=== PATIENT | female | born 1975 | race Caucasian/White ===

== ENCOUNTER 2017-04-28 12:33 | Emergency (ER) | payer OTHER ==
[2017-04-28 14:13] LABS: ABS Basophils 0.1 10^3/ul (0-0.2); ABS Eosinophils 0.1 10^3/ul (0-0.6); ABS Lymphocytes 1.4 10^3/ul (1.0-4.8); ABS Monocytes 0.2 10^3/ul (0-0.8); ABS Neutrophils 2.9 10^3/ul (1.5-7.7); ABS Nucleated RBC 0.01 10^3/ul; Hematocrit 35 % (35-47); Hemoglobin 11.7 g/dl (12.0-16.0); Lymphocyte % 29.5 % (25-47); Mean Corpuscular HGB Conc 34 g/dl (31-36); Mean Corpuscular Hemoglobin 30 pg (27-31); Mean Corpuscular Volume 88 fL (80-97); Mean Platelet Volume 8 um3 (7.4-10.4); Nucleated Red Blood Cells % 0.2; Platelet Count 244 10^3/ul (150-450); Red Blood Count 3.96 10^6/ul (4.0-5.4); Red Cell Distribution Width 15 % (10.5-15); White Blood Count 4.7 10^3/ul (3.5-10.8)
[2017-04-28 14:27] LABS: EGFR Non-African American 91.8 (>60)
--- NOTE | 2017-04-28 15:10 | RAD ---
Indication: Right upper portion pain real-time sonography of the right upper quadrant was performed. Liver is normal size. No focal lesions or intrahepatic duct dilatation is noted. The gallbladder demonstrates no gallstones, pericholecystic fluid or wall thickening. The common duct measures 4 mm. The right kidney measures 10.1 x 4.6 x 5.2 cm with no hydronephrosis. The pancreas indicates no mass or pancreatic duct dilatation. Aorta and inferior vena cava are unremarkable. IMPRESSION: No evidence of cholelithiasis or biliary duct dilatation.
[2017-04-28 15:42] VITALS: BP 120/75
--- NOTE | 2017-04-28 16:33 | ED ---
Azalia Martinez Gabriel, scribed for Quinton New MD on 04/28/17 at 1322 . Abdominal Pain/Female - HPI Summary HPI Summary: This patient is a 41 year old F presenting to [facility] with a chief complaint of ABD pain that began a week ago. The patient rates the pain 3/10 in severity and describes it as waxing and waning. Symptoms aggravated by eating. Patient reports pain under left shoulder pain, increase in reflux, and diarrhea. Patient denies n/v, fever, and melena. Patient has a past medical history of Kim's esophagus, GERD, IBS, and gastroparesis. Patient still has her gallbladder and her LNMP was a week ago. - History of Current Complaint Chief Complaint: EDAbdPain Stated Complaint: ABD PAIN Time Seen by Provider: 04/28/17 12:57 Hx Obtained From: Patient Onset/Duration: Lasting Weeks - 1, Still Present Timing: Intermittent Episode Lasting Severity Initially: Moderate Severity Currently: Moderate Pain Intensity: 3 Pain Scale Used: 0-10 Numeric Location: Diffuse Radiates: No Aggravating Factor(s): Food Associated Signs and Symptoms: Positive: Negative - melena, Back Pain, Diarrhea , Other: - increased reflux. Negative: Fever, Nausea, Vomiting Allergies/Adverse Reactions: Allergies Allergy/AdvReac Type Severity Reaction Status Date / Time Amoxicillin Allergy Intermediate Hives Verified 04/20/16 14:22 Cephalexin [From Keflex] Allergy Intermediate Hives Verified 04/20/16 14:22 Clarithromycin [From Biaxin] Allergy Intermediate Hives Verified 04/20/16 14:22 Codeine Allergy Intermediate Hives Verified 04/20/16 14:22 [From Tylenol with Codeine #3] Desloratadine [From Clarinex] Allergy Intermediate Hives Verified 04/20/16 14:22 Fluconazole [From Diflucan] Allergy Intermediate Hives Verified 04/20/16 14:22 Iodinated Contrast Media Allergy Intermediate See Comment Verified 04/20/16 14: 22 [IV CONTRAST DYE] Penicillins Allergy Intermediate Hives Verified 04/20/16 14:22 Sulfamethoxazole Allergy Intermediate Hives Verified 04/20/16 14:22 w/Trimethoprim [From Bactrim] Tramadol [From Ultram] Allergy Intermediate Hives Verified 04/20/16 14:22 Lidocaine Allergy Unknown Verified 04/20/16 14:22 Reaction Details PMH/Surg Hx/FS Hx/Imm Hx Previously Healthy: No Endocrine/Hematology History: Denies: Hx Diabetes, Hx Thyroid Disease Cardiovascular History: Reports: Other Cardiovascular Problems/Disorders - TACHYCARDIA, PALPATATIONS,SMALL MITRAL VALVE LEAKS Denies: Hx Hypercholesterolemia, Hx Hypertension, Hx Pacemaker/ICD, Hx Peripheral Vascular Disease Respiratory History: Denies: Hx Asthma History: Reports: Other Problems/Disorders - HAD A RENAL STONE ON 06/2011 CT SCAN Denies: Hx Dialysis, Hx Renal Disease Musculoskeletal History: Denies: Hx Arthritis, Hx Rheumatoid Arthritis, Hx Osteoporosis Sensory History: Denies: Hx Cataracts, Hx Contacts or Glasses, Hx Glaucoma, Hx Hearing Aid Opthamlomology History: Denies: Hx Cataracts, Hx Contacts or Glasses, Hx Glaucoma Neurological History: Denies: Hx Headaches, Hx Seizures, Hx Transient Ischemic Attacks (TIA) Psychiatric History: Reports: Hx Anxiety, Hx Panic Disorder - DOES OK WITH MR Denies: Hx Depression - Cancer History Hx Chemotherapy: No Hx Radiation Therapy: No - Surgical History Surgery Procedure, Year, and Place: D&C(),Blood tansfusion(), C -section(),left breast lumpectomy(October2011), D&C 2013 Infectious Disease History: No Infectious Disease History: Denies: Traveled Outside the [place] in Last 30 Days - Family History Known Family History: Positive: Cardiac Disease, Hypertension, Diabetes - Social History Alcohol Use: Occasionally Hx Substance Use: No Substance Use Type: Reports: None Hx Tobacco Use: No Smoking Status (MU): Never Smoked Tobacco Review of Systems Negative: Fever Gastrointestinal: Negative - melena Positive: Diarrhea, Other - increased reflux . Negative: Vomiting, Nausea Positive: Other - pain under left shoulder All Other Systems Reviewed And Are Negative: Yes Physical Exam - Summary Physical Exam Summary: Appearance: Well appearing, no pain distress Skin: warm, dry, reflects adequate perfusion Head/face: normal Eyes: EOMI, DEYSI ENT: normal Neck: supple, non-tender Respiratory: CTA, breath sounds present Cardiovascular: RRR, pulses symmetrical Abdomen: mild RUQ tenderness, soft, negative murphys sign Bowel: present Musculoskeletal: normal, strength/ROM intact Neuro: normal, sensory motor intact, A&Ox3 Triage Information Reviewed: Yes Vital Signs On Initial Exam: Initial Vitals Temp Pulse Resp BP Pulse Ox 98.5 F 78 18 129/80 100 04/28/17 12:34 04/28/17 12:34 04/28/17 12:34 04/28/17 12:34 04/28/17 12:34 Vital Signs Reviewed: Yes Diagnostics - Vital Signs Vital Signs Temp Pulse Resp BP Pulse Ox 04/28/17 12:34 98.5 F 78 18 129/80 100 - Laboratory Lab Results: Lab Results 04/28/17 04/28/17 Range/Units 14:02 14:02 WBC 4.7 (3.5-10.8) 10^3/ul RBC 3.96 L (4.0-5.4) 10^6/ul Hgb 11.7 L (12.0-16.0) g/dl Hct 35 (35-47) % MCV 88 (80-97) fL MCH 30 (27-31) pg MCHC 34 (31-36) g/dl RDW 15 (10.5-15) % Plt Count 244 (150-450) 10^3/ul MPV 8 (7.4-10.4) um3 Neut % (Auto) 61.1 (38-83) % Lymph % (Auto) 29.5 (25-47) % Rolette % (Auto) 5.0 (1-9) % Eos % (Auto) 3.0 (0-6) % Baso % (Auto) 1.4 (0-2) % Absolute Neuts (auto) 2.9 (1.5-7.7) 10^3/ul Absolute Lymphs (auto) 1.4 (1.0-4.8) 10^3/ul Absolute Monos (auto) 0.2 (0-0.8) 10^3/ul Absolute Eos (auto) 0.1 (0-0.6) 10^3/ul Absolute Basos (auto) 0.1 (0-0.2) 10^3/ul Absolute Nucleated RBC 0.01 10^3/ul Nucleated RBC % 0.2 Sodium 137 (133-145) mmol/L Potassium 3.6 (3.5-5.0) mmol/L Chloride 106 (101-111) mmol/L Carbon Dioxide 27 (22-32) mmol/L Anion Gap 4 (2-11) mmol/L BUN 15 (6-24) mg/dL Creatinine 0.70 (0.51-0.95) mg/dL Est GFR ( Amer) 118.0 (>60) Est GFR (Non-Af Amer) 91.8 (>60) BUN/Creatinine Ratio 21.4 H (8-20) Glucose 83 (70-100) mg/dL Calcium 8.9 (8.6-10.3) mg/dL Total Bilirubin 0.90 (0.2-1.0) mg/dL AST 12 L (13-39) U/L ALT 9 (7-52) U/L Alkaline Phosphatase 44 (34-104) U/L Total Protein 7.0 (6.4-8.9) g/dL Albumin 4.1 (3.2-5.2) g/dL Globulin 2.9 (2-4) g/dL Albumin/Globulin Ratio 1.4 (1-3) Lipase 63 (11.0-82.0) U/L Beta HCG, Quant < 0.60 mIU/mL Result Diagrams: 04/28/17 14:02 04/28/17 14:02 Lab Statement: Any lab studies that have been ordered have been reviewed, and results considered in the medical decision making process. - Additional Comments Diagnostic Additional Comments: Gallbladder US reveals, per radiologist, No evidence of cholelithiasis or biliary duct dilatation. ED physician has reviewed this radiology report. Re-Evaluation - Re-Evaluation First Eval Re-Evaluation Time: 15:19 Change: Improved Abdominal Pain Fem Course/Dx - Course Course Of Treatment: pt with chronic abd issues -- IBD, gastroparesis with RUQ pain. LFTs/lipase and GB US all wnl. Will need outpt reeval by her GI as well as HIDA functional scan. D/C in good condition. - Diagnoses Differential Diagnosis: Positive: Constipation, Gall Bladder Disease, Irritable Bowel Syndrome, Peptic Ulcer Disease Provider Diagnoses: Epigastric pain Discharge - Discharge Plan Condition: Good Disposition: HOME Prescriptions: Famotidine TAB* [Pepcid 20 MG TAB*] 20 mg PO BID #10 tab Sucralfate [Carafate] 1 gm PO Q6H #40 tab Patient Education Materials: Acute Abdominal Pain (ED) Referrals: Abel Mccoy MD [Primary Care Provider] - Additional Instructions: Call your doctor in the morning for appt. Have a HIDA scan scheduled. Return if vomiting, fever, increased pain, worse or other concerns. Low fat diet. The documentation as recorded by the Azalia reveles Gabriel accurately reflects the service I personally performed and the decisions made by me, Quinton New MD.
== END 2017-04-28 15:41 | disposition home or self-care (01) ==
LOC: ED 12:33
DX: R10.13 Epigastric pain (principal)
CPT/HCPCS: 36415; 76705; 80053; 83690; 84702; 85025; 99282

== ENCOUNTER 2018-10-29 02:51 | Emergency (ER) | payer OTHER ==
--- NOTE | 2018-10-29 03:35 | ED ---
Neurological HPI - HPI Summary HPI Summary: This pt is a 42 y/o female presenting to [facility] via EMS for numbness and weakness of right foot today. Pt reports that around 01:00 today pt felt her right toe cramping. She notes she flexed her right foot and her cramping resolved. A few seconds later the same thing happened again. Pt states this episode happened about 3 times. Pt reports that after the last time her right toe cramped she was unable to move her right foot. She notes she couldn't ambulate to the bathroom. Pt currently notes her right foot is weak and numb. Denies any pain now. Denies back pain, urinary or bowel dysfunction. Pt has had these episodes of cramping in the past but have resolved right away after flexing her foot. PMHx includes syringomyelia. Pt is followed up by a neurologist. She had an MRI on 09/18/18 through [facility] that revealed herniated disk. She is scheduled to follow up with a neurosurgeon in a couple of weeks. - History of Current Complaint Chief Complaint: EDWeakness Stated Complaint: UNABLE TO WALK PER EMS Time Seen by Provider: 10/29/18 03:13 Hx Obtained From: Patient Onset/Duration: Sudden Onset, Still Present Timing: Sudden Onset Current Severity: Moderate Neurological Deficit Location: RLE Pain Intensity: 0 Pain Scale Used: 0-10 Numeric Character: Numbness/Tingling - numbness, Motor Weakness, Other: - cramping Aggravating: Nothing Alleviating: Other - flexing right foot Associated Signs and Symptoms: Negative: Pain, Incontinent Bladder/Bowel, Fever - Allergy/Home Medications Allergies/Adverse Reactions: Allergies Allergy/AdvReac Type Severity Reaction Status Date / Time MS Amoxicillin [Amoxicillin] Allergy Intermediate Hives Verified 10/29/18 04:42 MS Cephalexin [From Keflex] Allergy Intermediate Hives Verified 10/29/18 04:42 MS Clarithromycin Allergy Intermediate Hives Verified 10/29/18 04:42 [From Biaxin] MS Codeine Allergy Intermediate Hives Verified 10/29/18 04:42 [From Tylenol with Codeine #3] MS Desloratadine Allergy Intermediate Hives Verified 10/29/18 04:42 [From Clarinex] MS Fluconazole Allergy Intermediate Hives Verified 10/29/18 04:42 [From Diflucan] MS Iodinated Contrast Media Allergy Intermediate See Comment Verified 10/29/18 04:42 [IV CONTRAST DYE] MS Penicillins [Penicillins] Allergy Intermediate Hives Verified 10/29/18 04:42 MS Sulfamethoxazole Allergy Intermediate Hives Verified 10/29/18 04:42 w/Trimethoprim [From Bactrim] MS Tramadol [From Ultram] Allergy Intermediate Hives Verified 10/29/18 04:42 MS Lidocaine [Lidocaine] Allergy Unknown Verified 10/29/18 04:42 Reaction Details Home Medications: Home Medications Famotidine TAB* [Pepcid 20 MG TAB*] 20 mg PO DAILY 10/29/18 [History Confirmed 10/29/18] Pantoprazole TAB * [Protonix TAB*] 40 mg PO DAILY 10/29/18 [History Confirmed ] PMH/Surg Hx/FS Hx/Imm Hx Endocrine/Hematology History: Denies: Hx Diabetes, Hx Thyroid Disease Cardiovascular History: Reports: Other Cardiovascular Problems/Disorders - TACHYCARDIA, PALPATATIONS,SMALL MITRAL VALVE LEAKS Denies: Hx Hypercholesterolemia, Hx Hypertension, Hx Pacemaker/ICD, Hx Peripheral Vascular Disease Respiratory History: Denies: Hx Asthma History: Reports: Other Problems/Disorders - HAD A RENAL STONE ON 06/2011 CT SCAN Denies: Hx Dialysis, Hx Renal Disease Musculoskeletal History: Denies: Hx Arthritis, Hx Rheumatoid Arthritis, Hx Osteoporosis Sensory History: Denies: Hx Cataracts, Hx Contacts or Glasses, Hx Glaucoma, Hx Hearing Aid Opthamlomology History: Denies: Hx Cataracts, Hx Contacts or Glasses, Hx Glaucoma Neurological History: Reports: Other Neuro Impairments/Disorders - syringomyelia Denies: Hx Headaches, Hx Seizures, Hx Transient Ischemic Attacks (TIA) Psychiatric History: Reports: Hx Anxiety, Hx Panic Disorder - DOES OK WITH MR Denies: Hx Depression - Cancer History Hx Chemotherapy: No Hx Radiation Therapy: No - Surgical History Surgery Procedure, Year, and Place: D&C(),Blood tansfusion(), C -section(),left breast lumpectomy(October2011), D&C 2013 Infectious Disease History: No Infectious Disease History: Denies: Traveled Outside the [place] in Last 30 Days - Family History Known Family History: Positive: Cardiac Disease, Hypertension, Diabetes - Social History Alcohol Use: Occasionally Hx Substance Use: No Substance Use Type: Reports: None Hx Tobacco Use: No Smoking Status (MU): Never Smoked Tobacco Review of Systems Negative: Fever Negative: incontinence Musculoskeletal: Other - POSITIVE: right toe cramping Negative: Other - NEGATIVE: back pain Neurological: Other - POSITIVE: inability to move right foot Positive: Numbness - right foot All Other Systems Reviewed And Are Negative: Yes Physical Exam - Summary Physical Exam Summary: VITAL SIGNS: Reviewed. GENERAL: Patient is a well-developed and nourished female who is lying comfortable in the stretcher. Patient is not in any acute respiratory distress. HEAD AND FACE: No signs of trauma. No ecchymosis, hematomas or skull depressions. No sinus tenderness. EYES: PERRLA, EOMI x 2, No injected conjunctiva, no nystagmus. EARS: Hearing grossly intact. Ear canals and tympanic membranes are within normal limits. MOUTH: Oropharynx within normal limits. NECK: Supple, trachea is midline, no adenopathy, no JVD, no carotid bruit, no c- spine tenderness, neck with full ROM. CHEST: Symmetric, no tenderness at palpation LUNGS: Clear to auscultation bilaterally. No wheezing or crackles. CVS: Regular rate and rhythm, S1 and S2 present, no murmurs or gallops appreciated. ABDOMEN: Soft, non-tender. No signs of distention. No rebound no guarding, and no masses palpated. Bowel sounds are normal. EXTREMITIES: FROM in all major joints, no edema, no cyanosis or clubbing. NEURO: Alert and oriented x 3. Speech is normal and follows commands. Weakness in plantar flexion and dorsiflexion of the right ankle. Sensation is intact. SKIN: Dry and warm Triage Information Reviewed: Yes Vital Signs On Initial Exam: Initial Vitals Temp Pulse Resp BP Pulse Ox 98.5 F 89 16 143/81 99 10/29/18 03:14 10/29/18 03:14 10/29/18 03:14 10/29/18 03:14 10/29/18 03:14 Vital Signs Reviewed: Yes Diagnostics - Vital Signs Vital Signs Temp Pulse Resp BP Pulse Ox 10/29/18 03:14 98.5 F 104 16 143/81 100 - Laboratory Result Diagrams: 10/29/18 03:52 10/29/18 03:52 Lab Statement: Any lab studies that have been ordered have been reviewed, and results considered in the medical decision making process. Course/Dx - Course Assessment/Plan: Pt is a 42 y/o female presenting to [facility] via EMS for numbness and weakness of right foot today. Pt reports that around 01:00 today pt felt her right toe cramping. She notes she flexed her right foot and her cramping resolved. Pt states this episode happened about 3 times. Pt reports that after the last time her right toe cramped she was unable to move her right foot. She notes she couldn't ambulate to the bathroom. Pt currently notes her right foot is weak and numb. Denies any pain now. Denies back pain, urinary or bowel dysfunction. Pt has had these episodes happen in the past and she is followed up a neurologist. Test results without any significant abnormalities. Pt reports her foot weakness has resolved. She is requesting to be discharged. Pt will be discharged home with follow up from her PCP and neurologist. She was instructed to return to the ED for any worsening or new symptoms. - Diagnoses Provider Diagnoses: Weakness of foot Discharge - Sign-Out/Discharge Documenting (check all that apply): Patient Departure - Discharge home Patient Received Moderate/Deep Sedation with Procedure: No - Discharge Plan Condition: Stable Disposition: HOME Patient Education Materials: Weakness (ED) Referrals: Abel Mccoy MD [Primary Care Provider] - Additional Instructions: Please follow up with your primary care provider in 1-2 days. Also follow up with your neurologist. RETURN TO EMERGENCY DEPARTMENT FOR ANY NEW OR WORSENING SYMPTOMS. - Attestation Statements Document Initiated by Scribe: Yes Documenting Scribe: Rosa Duvall Provider For Whom Anayeli is Documenting (Include Credential): Emili Taylor MD Scribe Attestation: Rosa Martinez, scribed for Emili Taylor MD on 10/29/18 at 0503. Status of Scribe Document: Ready
[2018-10-29 03:58] LABS: ABS Basophils 0.1 10^3/ul (0-0.2); ABS Eosinophils 0.1 10^3/ul (0-0.6); ABS Monocytes 0.4 10^3/ul (0-0.8); ABS Neutrophils 4.4 10^3/ul (1.5-7.7); Eosinophil % 1.1 %; Hematocrit 34 % (35-47); Hemoglobin 11.5 g/dL (12.0-16.0); Lymphocyte % 16.4 %; Mean Corpuscular HGB Conc 33 g/dL (31-36); Mean Corpuscular Hemoglobin 29 pg (27-31); Mean Corpuscular Volume 88 fL (80-97); Mean Platelet Volume 8.2 fL (7.4-10.4); Platelet Count 230 10^3/uL (150-450); Red Blood Count 3.91 10^6 /uL (3.70-4.87); Red Cell Distribution Width 15 % (10-15); White Blood Count 5.9 10^3/uL (3.5-10.8)
[2018-10-29 04:15] LABS: ALT 33 U/L (7-52); AST 27 U/L (13-39); Albumin 4.3 g/dL (3.2-5.2); Albumin/Globulin Ratio 1.5 (1-3); Alkaline Phosphatase 50 U/L (34-104); Anion Gap 8 mmol/L (2-11); BUN/Creatinine Ratio 22.6 (8-20); Blood Urea Nitrogen 14 mg/dL (6-24); C Reactive Protein < 1.00 mg/L (<8.01); CO2 Carbon Dioxide 25 mmol/L (22-32); Calcium 8.9 mg/dL (8.6-10.3); Chloride 107 mmol/L (101-111); EGFR African American 127.1 (>60); EGFR Non-African American 105.1 (>60); Globulin 2.9 g/dL (2-4); Glucose 116 mg/dL (70-100); Magnesium 1.9 mg/dL (1.9-2.7); Potassium 3.6 mmol/L (3.5-5.0); Sodium 140 mmol/L (135-145); Total Protein 7.2 g/dL (6.4-8.9)
[2018-10-29 04:36] LABS: TSH (Thyroid Stimulating Horm) 5.64 mcIU/mL (0.34-5.60)
[2018-10-29 05:05] VITALS: BP 110/73
== END 2018-10-29 05:04 | disposition home or self-care (01) ==
LOC: ED 02:51
DX: M21.41 Flat foot [pes planus] (acquired), right foot (principal); Z79.899 Other long term (current) drug therapy
CPT/HCPCS: 36415; 80053; 82607; 83735; 84443; 85025; 86140; 99282